=== PATIENT | female | born 1995 | race African-American/Black ===

== ENCOUNTER → 2020-01-13 | Outpatient (CLI) | payer OTHER | LOC: SPEC 17:25 | PROVIDERS: ATTEND Family Medicine | DX: Z34.02 Encounter for supervision of normal first pregnancy, second trimester (principal); Z3A.15 15 weeks gestation of pregnancy | CPT/HCPCS: 88175 ==

== ENCOUNTER → 2020-01-14 | Outpatient (CLI) | payer OTHER ==
[2020-01-14 12:51] LABS: BASO % 0 % (0-3); EOS % 1 % (0-3); HEMATOCRIT 36.4 % (36.0-47.0); HEMOGLOBIN 12.6 g/dL (12.0-15.5); LYMPH # 1.9 x10^3/uL (1.0-4.8); LYMPH % 28 % (24-48); MEAN CORPUSCULAR HEMOGLOBIN 31 pg (25-35); MEAN CORPUSCULAR HGB CONC 35 g/dL (31-37); MEAN CORPUSCULAR VOLUME 90 fL (79-100); MONO # 0.7 x10^3/uL (0.0-1.1); MONO % 10 % (0-9); NEUT # 4.2 x10^3/uL (1.8-7.7); NEUT % 61 % (31-73); PLATELET COUNT 213 x10^3/uL (140-400); RED BLOOD COUNT 4.03 x10^6/uL (3.50-5.40); RED CELL DISTRIBUTION WIDTH 11.8 % (11.5-14.5); WHITE BLOOD COUNT 6.8 x10^3/uL (4.0-11.0)
== END | disposition home or self-care (01) ==
LOC: LAB 12:16
PROVIDERS: ATTEND Family Medicine
DX: Z34.01 Encounter for supervision of normal first pregnancy, first trimester (principal)
CPT/HCPCS: 36415; 85025; 86592; 86703; 86762; 86850; 86900; 86901; 87340

== ENCOUNTER 2020-02-17 11:15 | Emergency (ER) | payer OTHER ==
[~2020-02-17] VITALS: Ht 152.4 cm; Wt 68.0 kg
[2020-02-17] MEDS ORDERED: IV NORMAL SALINE 1000ML BAG 1,000 ML IV SCH (12:40)
[2020-02-17 12:51] LABS: BILIRUBIN,URINE NEGATIVE (NEG); CLARITY,URINE CLOUDY; COLOR,URINE YELLOW; NITRITE,URINE POSITIVE (NEG); PH,URINE 7.5 (<5.0-8.0); PROTEIN,URINE 30 mg/dL (NEG-TRACE)
[2020-02-17 12:57] LABS: BACTERIA,URINE MANY /HPF (0-FEW)
[2020-02-17] MEDS ORDERED: ACETAMINOPHEN 500 MG TABLET PO ONE (13:15)
--- NOTE | 2020-02-17 13:15 | PHYS DOC ---
General Adult EDM: Chief Complaint: VAGINAL BLEEDING HPI: HPI: Patient is a 24 year old Female who presents with yesterday states she has some vaginal spotting with wiping. She states she did not have to wear a panty liner. She also states that she has low mid abdominal pain that is a pressure type pain and bilateral low back pain she rates a 7 out of 10. She not take any medications for this. She states that she no longer sees any of the blood when she wipes and she has no vaginal bleeding and denies any abnormal vaginal discharge. She is approximately [address] Herrera for her OB care. She sees him next on the . Patient denies nausea, vomiting, fever, headache, dizziness, chest pain, cough, shortness of breath. Review of Systems: Review of Systems: Constitutional: Denies fever or chills. [] Eyes: Denies change in visual acuity. [] HENT: Denies nasal congestion or sore throat. [] Respiratory: Denies cough or shortness of breath. [] Cardiovascular: Denies chest pain or edema. [] GI: +Low mid abdominal pain, denies nausea, vomiting, bloody stools or diarrhea. [] : Denies dysuria. +Blood on toilet paper when wiping.[] Musculoskeletal: Low back pain or denies joint pain. [] Integument: Denies rash. [] Neurologic: Denies headache, focal weakness or sensory changes. [] Endocrine: Denies polyuria or polydipsia. [] Lymphatic: Denies swollen glands. [] Psychiatric: Denies depression or anxiety. [] Heart Score: Risk Factors: Risk Factors: DM, Current or recent (<one month) smoker, HTN, HLP, family history of CAD, obesity. Risk Scores: Score 0 - 3: 2.5% MACE over next 6 weeks - Discharge Home Score 4 - 6: 20.3% MACE over next 6 weeks - Admit for Clinical Observation Score 7 - 10: 72.7% MACE over next 6 weeks - Early Invasive Strategies Current Medications: Current Medications Medications (Trade) Dose Ordered Sig/Kevin Start Time Stop Time Status Last Admin Dose Admin Sodium Chloride 1,000 ml @ 1,000 mls/hr Q1H 02/17/20 12:40 02/17/20 13:39 UNV Physical Exam: PE: Constitutional: Well developed, well nourished, no acute distress, non-toxic appearance. [] HENT: Normocephalic, atraumatic, bilateral external ears normal, oropharynx moist, no oral exudates, nose normal. [] Eyes: PERRLA, EOMI, conjunctiva normal, no discharge. [] Neck: Normal range of motion, no tenderness, supple, no stridor. [] Cardiovascular:Heart rate regular rhythm, no murmur [] Lungs & Thorax: Bilateral breath sounds clear to auscultation [] Abdomen: Bowel sounds normal, soft, no tenderness, no masses, no pulsatile masses. [] Skin: Warm, dry, no erythema, no rash. [] Back: No tenderness, no CVA tenderness. [] Extremities: No tenderness, no cyanosis, no clubbing, ROM intact, no edema. [] Neurologic: Alert and oriented X 3, normal motor function, normal sensory function, no focal deficits noted. [] Psychologic: Affect normal, judgement normal, mood normal. Normal physical exam [] Current Patient Data: Labs: Laboratory Tests Test 02/17/20 12:40 02/17/20 12:43 Urine Collection Type Unknown Urine Color Yellow Urine Clarity Cloudy Urine pH 7.5 (<5.0-8.0) Urine Specific [place] >=1.030 (1.000-1.030) Urine Protein 30 mg/dL (NEG-TRACE) Urine Glucose (UA) Negative mg/dL (NEG) Urine Ketones (Stick) Trace mg/dL (NEG) Urine Blood Negative (NEG) Urine Nitrite Positive (NEG) Urine Bilirubin Negative (NEG) Urine Urobilinogen Dipstick 1.0 mg/dL (0.2 mg/dL) Urine Leukocyte Esterase Small (NEG) Urine RBC 1-2 /HPF (0-2) Urine WBC 5-10 /HPF (0-4) Urine Squamous Epithelial Cells Many /LPF Urine Bacteria Many /HPF (0-FEW) Urine Mucus Marked /LPF POC Urine HCG, Qualitative Hcg positive (Negative) EKG: EKG: [] Radiology/Procedures: Radiology/Procedures: [] Impression: [facility] [address] [place], [place] [id number] IMAGING REPORT Signed PATIENT: TRISH PATRICK S ACCOUNT: [id number] : 1995 LOCATION: ER AGE: 24 SEX: F EXAM STATUS: REG ER ORD. PHYSICIAN: TERESA MARCUS APRN REASON: ABDOMINAL PAIN WITH PREG PROCEDURE: OB LIMITED OB ULTRASOUND, LIMITED Clinical Indication: Reason: ABDOMINAL PAIN WITH PREG / Spl. Instructions: / History: Comparison: First trimester OB ultrasound January 22, 2020. Technique: Multiple grayscale images, color Doppler, and M-mode images of the uterus are obtained. Findings: There is a single intrauterine gestation in breech presentation. The placenta is fundal in location without evidence of placenta previa. The amount of amniotic fluid appears appropriate. Cervical length is 2.7 cm. Biometrical data: BPD = 3 cm for 15 weeks 4 days. HC = 11.8 cm for 15 weeks 6 days. AC = 10.6 cm for 16 weeks 4 days. FL = 1.9 cm for 15 weeks 5 days. HC/AC ratio = 1.11. Overall, the estimated sonographic gestational age is 16 weeks 0 days for an estimated date of delivery of August 03, 2020. The estimated date of delivery provided by the last menstrual period is 08/06/2020. Estimated weight is 145 +/- 21 grams. The estimated heart rate is 141 beats per minute. A complete anatomic survey is not performed due to early gestational age. This can be performed at 20 weeks. The maternal ovaries are not identified. Impression: Single live intrauterine gestation with estimated sonographic gestational age of 16 weeks and 0 days. Electronically signed by: Leo Mccabe MD (02/17/2020 2:28 PM) [id number] DICTATED and SIGNED BY: LEO MCCABE MD DATE: 02/17/20 1428 Course & Med Decision Making: Course & Med Decision Making Pertinent Labs and Imaging studies reviewed. (See chart for details) See HPI. Abdomen soft and nontender. No CVA tenderness. Alert and oriented x4. Ambulatory with a steady gait. Patient states she no longer sees any blood with wiping. Speaks in full clear sentences. Febrile. Patient is O+. Blood work unremarkable. Urinalysis shows urinary tract infection with positive nitrites. Patient is given Rocephin 1 g IV. She will be sent home on Keflex. Patient to follow-up with her primary care physician. She received a liter of normal saline in the ED. [] Darrell Disclaimer: Darrell Disclaimer: This electronic medical record was generated, in whole or in part, using a voice recognition dictation system. Departure Departure Impression: Primary Impression: Urinary tract infection affecting Disposition: 01 DC HOME SELF CARE/HOMELESS Condition: STABLE Referrals: BRIT BROCK MD (PCP) Patient Instructions: - Urinary Tract Infection Additional Instructions: Follow-up with as scheduled or sooner. Take medication as prescribed until it is gone. Drink plenty of fluids to stay hydrated and to flush your kidneys. Take Tylenol for pain. If your symptoms worsen call Dr. Herrera. Scripts Cephalexin (KEFLEX) 500 Mg Capsule 1 CAP PO BID for 7 Days, #14 CAP 0 Refills Prov: TERESA MARCUS APRN 02/17/20 TERESA MARCUS APRN Feb 17, 2020 13:15
[2020-02-17 13:24] LABS: BASO % 0 % (0-3); EOS % 0 % (0-3); HEMOGLOBIN 12.1 g/dL (12.0-15.5); LYMPH # 1.7 x10^3/uL (1.0-4.8); LYMPH % 19 % (24-48); MEAN CORPUSCULAR HEMOGLOBIN 31 pg (25-35); MEAN CORPUSCULAR HGB CONC 35 g/dL (31-37); MEAN CORPUSCULAR VOLUME 91 fL (79-100); MONO # 0.5 x10^3/uL (0.0-1.1); MONO % 5 % (0-9); NEUT # 6.5 x10^3/uL (1.8-7.7); NEUT % 75 % (31-73); PLATELET COUNT 197 x10^3/uL (140-400); RED BLOOD COUNT 3.85 x10^6/uL (3.50-5.40); RED CELL DISTRIBUTION WIDTH 12.2 % (11.5-14.5); WHITE BLOOD COUNT 8.7 x10^3/uL (4.0-11.0)
[2020-02-17 13:34] LABS: CALCIUM 9.1 mg/dL (8.5-10.1); CREATININE 0.5 mg/dL (0.6-1.0); GFR 186.7; POTASSIUM 3.6 mmol/L (3.5-5.1)
[2020-02-17] MEDS ORDERED: CEPH-264 PO (13:38)
[2020-02-17 13:39] LABS: ALBUMIN 3.6 g/dL (3.4-5.0); TOTAL BILIRUBIN 0.2 mg/dL (0.2-1.0); TOTAL PROTEIN 7.3 g/dL (6.4-8.2)
[2020-02-17] MEDS ORDERED: cefTRIAXone IV Push 1 GM VIAL. IVP ONE (13:45)
--- NOTE | 2020-02-17 14:30 | RAD ---
OB ULTRASOUND, LIMITED Clinical Indication: Reason: ABDOMINAL PAIN WITH PREG / Spl. Instructions: / History: Comparison: First trimester OB ultrasound January 22, 2020. Technique: Multiple grayscale images, color Doppler, and M-mode images of the uterus are obtained. Findings: There is a single intrauterine gestation in breech presentation. The placenta is fundal in location without evidence of placenta previa. The amount of amniotic fluid appears appropriate. Cervical length is 2.7 cm. Biometrical data: BPD = 3 cm for 15 weeks 4 days. HC = 11.8 cm for 15 weeks 6 days. AC = 10.6 cm for 16 weeks 4 days. FL = 1.9 cm for 15 weeks 5 days. HC/AC ratio = 1.11. Overall, the estimated sonographic gestational age is 16 weeks 0 days for an estimated date of delivery of August 03, 2020. The estimated date of delivery provided by the last menstrual period is 08/06/2020. Estimated weight is 145 +/- 21 grams. The estimated heart rate is 141 beats per minute. A complete anatomic survey is not performed due to early gestational age. This can be performed at 20 weeks. The maternal ovaries are not identified. Impression: Single live intrauterine gestation with estimated sonographic gestational age of 16 weeks and 0 days. Electronically signed by: Leo Mccabe MD (02/17/2020 2:28 PM) [id number]
[2020-02-17 15:12] VITALS: BP 103/55
== END 2020-02-17 15:12 | disposition home or self-care (01) ==
LOC: ER 11:15
DX: O23.42 Unspecified infection of urinary tract in pregnancy, second trimester (principal); M54.5 Low back pain; Z3A.16 16 weeks gestation of pregnancy
CPT/HCPCS: 36415; 76815; 80053; 81001; 81025; 85025; 85610; 87086; 96361; 96374; 99284; J0696; J7030